=== PATIENT | female | born 1935 | race African-American/Black ===

== ENCOUNTER 2018-08-31 18:02 | Observation (INO) ==
[2018-08-31 18:33] LABS: BASOPHILS # (AUTO) 0.1 X10^3/uL (0.0-0.1); BASOPHILS % (AUTO) 1.2 % (0.2-1.0); EOSINOPHILS # (AUTO) 0.2 x10^3/uL (0.0-0.2); HEMATOCRIT 37.7 % (36.0-47.0); HEMOGLOBIN 12.3 g/dL (12.0-16.0); LYMPHOCYTES # (AUTO) 1.3 X10^3/uL (1.3-2.9); MEAN CORPUSCULAR HEMOGLOBIN 27.7 pg (27.0-34.0); MEAN CORPUSCULAR HGB CONC 32.7 g/dL (33.0-35.0); MEAN CORPUSCULAR VOLUME 84.7 fL (80.0-100.0); MONOCYTES # (AUTO) 0.5 x10^3/uL (0.3-0.8); MONOCYTES % (AUTO) 11.4 % (0.0-13.0); NEUTROPHILS # (AUTO) 2.3 x10^3/uL (2.2-4.8); NEUTROPHILS % (AUTO) 53.4 % (42.0-75.0); PLATELET COUNT 118 X10^3/uL (150.0-450.0); RED BLOOD COUNT 4.45 X10^6/uL (3.5-5.4); RED CELL DISTRIBUTION WIDTH 14.8 % (11.6-16.5); WHITE BLOOD COUNT 4.4 X10^3/uL (3.6-10.0)
[2018-08-31] MEDS ORDERED: ELIQUIS PO ONE (18:38)
[2018-08-31 18:44] LABS: ALANINE AMINOTRANSFERASE 27 Units/L (12-78); ALBUMIN 3.8 g/dL (3.4-5.0); ALKALINE PHOSPHATASE 86 Units/L (46-116); ASPARTATE AMINO TRANSFERASE 33 Units/L (15-37); BLOOD UREA NITROGEN 18 mg/dL (7-18); CALCIUM 9.6 mg/dL (8.5-10.1); CARBON DIOXIDE 28.5 mmol/L (21-32); CHLORIDE 102 mmol/L (98-107); CREATININE 1.06 mg/dL (0.55-1.02); SODIUM 138 mmol/L (136-145); TOTAL PROTEIN 8.3 g/dL (6.4-8.2); eGFR NON BLACK RACES 53 (>60)
--- NOTE | 2018-08-31 18:48 | DR.GENAD ---
HPI Time Seen Time Seen by Provider: 08/31/18 18:30 PCP Primary Care Physician: larissa Complaint/Symptoms Chief Complaint Doctors Comments: Pt. was diverted to be evaluated in the ED based on a positive Doppler study on the left lower extremity. The pt. states she has had left calf pain for 1 week now. Swelling started 5 days ago. She went to [facility] this evening and was sent for the venous study referenced above. She denies chest pain or dyspnea. Chief Complaint:: pt states" I had a LEV done today it shows a blood clot my Dr told me to come to the er" lt leg pain and swelling since Source History Provided: Patient Mode of Arrival Mode of Arrival: Ambulatory Timing Onset of Chief Complaint: 08/26/18 PMH PMH Past Medical History: Yes Past Medical History: Hypertension Past Surgical History: Yes Surgical History: Appendectomy, Cholecystectomy and Hysterectomy Past Surgical History Comment: back surgery Family History History of Family Medical Conditions: Yes Family Medical History: Diabetes Mellitus, Cancer and Hypertension Social History Does any household member use tobacco: No Alcohol Use: None Do you use any recreational Drugs:: No Lives With: Family Lives Where: Home infectious screening In the last 2 months have you had wt loss of >10#?: NO Have you had fever, night sweats or hemotysis?: No Have you traveled outside the country in the last 6 months?: No Isolation: Standard ROS Review of Systems Constitutional: No Symptoms Reported Eyes: No Symptoms Reported ENTM: No Symptoms Reported Respiratoy: No Symptoms Reported Cardiovascular: No Symptoms Reported Gastrointestinal/Abdominal: No Symptoms Reported Genitourinary: No Symptoms Reported Neurological: No Symptoms Reported Musculoskeletal: Leg (pain and swelling, left) Integumentary: No Symptoms Reported Hematologic/Lymphatic: No Symptoms Reported Endocrine: No Symptoms Reported Psychiatric: No Symptoms Reported PE Vital Signs Vitals: Temperature 97.6 F Pulse Rate [Right Brachial] 78 Pulse Rate 68 Respiratory Rate 18 Blood Pressure [Right Arm] 169/81 Blood Pressure 191/77 O2 Sat by Pulse Oximetry 98 General Limitations: No Limitations General Appearance: Alert and In No Apparent Distress Head Head Exam: Normal Inspection, Atraumatic and Normocephalic Eyes Eye exam: Normal Appearance, PERRL and EOMI ENT ENT Exam: Normal Exam, Normal Oropharynx and Mucous Membranes Moist Neck Neck Exam: Normal Inspection, Full ROM and Trachea Midline Chest Chest Inspection: Normal Inspection Respiratory Respiratory Exam: Normal Lung Sounds Bilat Cardiovascular Cardiovascular Exam: Regular Rate, Normal Rhythm, +S1 and +S2 Abdominal Exam Abdominal Exam: Normal Inspection, Normal Bowel Sounds and Soft Extremities Extremities Exam: Edema (Lt. leg), Calf Tenderness (lt, leg) and Other (CAMILLE's test is positive on the left) Neurologic Neurological Exam: Alert and Oriented X3 Psychiatric Psychiatric Exam: Normal Affect and Normal Mood Skin Skin Exam: Warm, Dry and Intact COURSE Education/Counseling Education/Counseling: Patient, Family, Education and Counseling Educated On: Treatment, Diagnosis, Prognosis and Needs for Follow Up ROR Labs Reviewed Laboratory Results Reviewed?: Yes Result Diagrams: 08/31/18 18:08/31/18 18 Laboratory: WBC 4.4 X10^3/uL (3.6-10.0) 08/31/18 18: RBC 4.45 X10^6/uL (3.5-5.4) 08/31/18 18: Hgb 12.3 g/dL (12.0-16.0) 08/31/18 18: Hct 37.7 % (36.0-47.0) 08/31/18 18: MCV 84.7 fL (80.0-100.0) 08/31/18 18: MCH 27.7 pg (27.0-34.0) 08/31/18 18: MCHC 32.7 g/dL (33.0-35.0) L 08/31/18 18: RDW 14.8 % (11.6-16.5) 08/31/18: Plt Count 118 X10^3/uL (150.0-450.0) L 08/31/18 18: MPV 8.0 fL (7.4-11.0) 08/31/18 18: Neut % (Auto) 53.4 % (42.0-75.0) 08/31/18 18: Lymph % (Auto) 30.0 % (21.0-51.0) 08/31/18 18: [place] % (Auto) 11.4 % (0.0-13.0) 08/31/18 18: Eos % (Auto) 4.0 % (0.9-2.9) H 08/31/18 18:27 Baso % (Auto) 1.2 % (0.2-1.0) H 08/31/18 18:27 Neut # (Auto) 2.3 x10^3/uL (2.2-4.8) 08/31/18 18:27 Lymph # (Auto) 1.3 X10^3/uL (1.3-2.9) 08/31/18 18:27 [place] # (Auto) 0.5 x10^3/uL (0.3-0.8) 08/31/18 18:27 Eos # (Auto) 0.2 x10^3/uL (0.0-0.2) 08/31/18 18:27 Baso # (Auto) 0.1 X10^3/uL (0.0-0.1) 08/31/18 18: Absolute Nucleated RBC 0.0 /100WBC 08/31/18 18: INR Target Range - 08/31/18 18: INR 0.92 (0.8-1.3) 08/31/18 18:27 APTT 33.7 SECONDS (22.9-36.5) 08/31/18 18:27 PTT Comment - 08/31/18 18:27 Sodium 138 mmol/L (136-145) 08/31/18 18:27 Corrected Sodium TNP 08/31/18 18:27 Potassium 3.9 mmol/L (3.5-5.1) 08/31/18 18: Chloride 102 mmol/L (98-107) 08/31/18 18: Carbon Dioxide 28.5 mmol/L (21-32) 08/31/18 18:27 BUN 18 mg/dL (7-18) 08/31/18 18:27 Creatinine 1.06 mg/dL (0.55-1.02) H 08/31/18 18:27 Est GFR (MDRD) Af Amer > 60 (>60) 08/31/18 18:27 Est GFR (MDRD) Non-Af 53 (>60) L 08/31/18 18:27 Glucose 92 mg/dL (65-99) 08/31/18 18: Calcium 9.6 mg/dL (8.5-10.1) 08/31/18 18:27 Corrected Calcium TNP 08/31/18 18:27 Total Bilirubin 0.40 mg/dL (0.2-1.0) 08/31/18 18:27 AST 33 Units/L (15-37) 08/31/18 18:27 ALT 27 Units/L (12-78) 08/31/18 18:27 Alkaline Phosphatase 86 Units/L (46-116) 08/31/18 18:27 Total Protein 8.3 g/dL (6.4-8.2) H 08/31/18 18:27 Albumin 3.8 g/dL (3.4-5.0) 08/31/18 18:27 Globulin 4.5 g/dL (2.5-4.5) 08/31/18 18:27 Albumin/Globulin Ratio 0.8 Ratio (1.1-2.1) L 08/31/18 18:27 XRAY XRAY Interpreted by: Self XRAY Findings: CXR: NAD Diagnosis Discharge Problem: Deep vein thrombosis (DVT) of popliteal vein of left lower extremity Qualifiers: Chronicity: acute Qualified Code(s): I82.432 - Acute embolism and thrombosis of left popliteal vein
--- NOTE | 2018-08-31 18:54 | RAD ---
HISTORY: Blood clot Study: Single view of the chest. Comparison: None. Findings: The cardiomediastinal silhouette is normal. No focal consolidations, pleural effusions or pneumothorax. Osseous structures demonstrate no acute abnormality. IMPRESSION: 1. No acute cardiopulmonary process. Reported By:
[2018-08-31] MEDS ORDERED: APRESOLINE INJ 20 MG VIAL IVP ONE (23:10)
[2018-09-01 01:03] LABS: BILIRUBIN,URINE NEGATIVE (NEGATIVE); BLOOD/HEMOGLOBIN,URINE NEGATIVE (NEGATIVE); GLUCOSE, URINE NEGATIVE (NEGATIVE); KETONES,URINE NEGATIVE (NEGATIVE); LEUKOCYTE ESTERASE ,URINE NEGATIVE (NEGATIVE); NITRITES,URINE NEGATIVE (NEGATIVE); PROTEIN,URINE NEGATIVE (NEGATIVE); UROBILINOGEN,URINE NORMAL (NORMAL)
[2018-09-01 01:05] LABS: APPEARANCE,URINE CLEAR (CLEAR); COLOR,URINE YELLOW (YELLOW)
[2018-09-01 01:07] VITALS: BMI 31.1
[2018-09-01 06:22] LABS: ALANINE AMINOTRANSFERASE 26 Units/L (12-78); ALBUMIN 3.3 g/dL (3.4-5.0); ALKALINE PHOSPHATASE 76 Units/L (46-116); ASPARTATE AMINO TRANSFERASE 32 Units/L (15-37); BLOOD UREA NITROGEN 16 mg/dL (7-18); CALCIUM 9.4 mg/dL (8.5-10.1); CARBON DIOXIDE 29.7 mmol/L (21-32); CHLORIDE 103 mmol/L (98-107); CREATININE 1.08 mg/dL (0.55-1.02); SODIUM 141 mmol/L (136-145); TOTAL PROTEIN 7.2 g/dL (6.4-8.2); eGFR NON BLACK RACES 52 (>60)
[2018-09-01 06:37] LABS: BASOPHILS % (AUTO) 0.8 % (0.2-1.0); EOSINOPHILS # (AUTO) 0.2 x10^3/uL (0.0-0.2); EOSINOPHILS % (AUTO) 4.4 % (0.9-2.9); HEMOGLOBIN 11.7 g/dL (12.0-16.0); LYMPHOCYTES # (AUTO) 1.2 X10^3/uL (1.3-2.9); LYMPHOCYTES % (AUTO) 25.7 % (21.0-51.0); MEAN CORPUSCULAR HEMOGLOBIN 28.1 pg (27.0-34.0); MEAN CORPUSCULAR HGB CONC 33.4 g/dL (33.0-35.0); MEAN CORPUSCULAR VOLUME 84.1 fL (80.0-100.0); MEAN PLATELET VOLUME 8.2 fL (7.4-11.0); MONOCYTES # (AUTO) 0.7 x10^3/uL (0.3-0.8); MONOCYTES % (AUTO) 16.1 % (0.0-13.0); NEUTROPHILS # (AUTO) 2.4 x10^3/uL (2.2-4.8); PLATELET COUNT 118 X10^3/uL (150.0-450.0); RED BLOOD COUNT 4.17 X10^6/uL (3.5-5.4); RED CELL DISTRIBUTION WIDTH 14.5 % (11.6-16.5); WHITE BLOOD COUNT 4.5 X10^3/uL (3.6-10.0)
[2018-09-01] MEDS: PROTONIX TAB 40 MG PO SCH (08:40)
[2018-09-01] MEDS: APRESOLINE TAB 25 MG PO SCH ×2 (08:41→20:24)
[2018-09-01] MEDS: ELIQUIS PO SCH ×2 (08:41→20:23)
[2018-09-01] MEDS ORDERED: APRESOLINE TAB 25 MG PO SCH (09:00)
[2018-09-01 11:26] LABS: ERYTHROCYTE SEDIMENTATION RATE 24 MM/HOUR (0-20)
[2018-09-01] MEDS ORDERED: TYLENOL 325 MG TAB PO ONE (17:26)
[2018-09-01] MEDS: TYLENOL 325 MG TAB PO PRN (17:30)
[2018-09-01] MEDS ORDERED: PREDNISONE TAB 20 MG PO NR (18:00)
[2018-09-02] MEDS: TYLENOL 325 MG TAB PO PRN (00:08)
[2018-09-02 05:18] LABS: BASOPHILS % (AUTO) 0.5 % (0.2-1.0); HEMATOCRIT 35.6 % (36.0-47.0); HEMOGLOBIN 11.6 g/dL (12.0-16.0); LYMPHOCYTES # (AUTO) 0.7 X10^3/uL (1.3-2.9); LYMPHOCYTES % (AUTO) 16.5 % (21.0-51.0); MEAN CORPUSCULAR HEMOGLOBIN 27.5 pg (27.0-34.0); MEAN CORPUSCULAR HGB CONC 32.5 g/dL (33.0-35.0); MEAN CORPUSCULAR VOLUME 84.5 fL (80.0-100.0); MEAN PLATELET VOLUME 8.1 fL (7.4-11.0); MONOCYTES # (AUTO) 0.1 x10^3/uL (0.3-0.8); MONOCYTES % (AUTO) 1.9 % (0.0-13.0); NEUTROPHILS # (AUTO) 3.3 x10^3/uL (2.2-4.8); NEUTROPHILS % (AUTO) 81.1 % (42.0-75.0); PLATELET COUNT 128 X10^3/uL (150.0-450.0); RED BLOOD COUNT 4.21 X10^6/uL (3.5-5.4); RED CELL DISTRIBUTION WIDTH 14.7 % (11.6-16.5); WHITE BLOOD COUNT 4.1 X10^3/uL (3.6-10.0)
[2018-09-02 05:35] LABS: ALBUMIN 3.1 g/dL (3.4-5.0); CALCIUM 9.1 mg/dL (8.5-10.1); CARBON DIOXIDE 26.5 mmol/L (21-32); COR CA(FOR HYPOALB) 9.8 mg/dL (8.5-10.1); CREATININE 1.29 mg/dL (0.55-1.02); TOTAL PROTEIN 7.2 g/dL (6.4-8.2)
[2018-09-02] MEDS ORDERED: BENADRYL CAP 50 MG PO NR (06:00)
[2018-09-02] MEDS ORDERED: PREDNISONE TAB 20 MG PO NR ×2 (06:00)
--- NOTE | 2018-09-02 07:33 | CT ---
HISTORY: Left lower extremity DVT Study: CTA chest with contrast for pulmonary embolus Comparison: None Technique: Axial post-contrast images with coronal, sagittal, and three-dimensional maximum intensity projection images obtained and evaluated. Dose reduction procedures were used with mA/kv adjusted for body size. Findings: There is no evidence for acute pulmonary thromboembolic disease. Examination of the mediastinum demonstrated enlargement of the left thyroid lobe which contributes to minimal rightward deviation of the upper trachea. No definite nodules or masses are identified. No mediastinal masses, enlarged mediastinal or enlarged hilar adenopathy is identified. Calcific atherosclerotic changes present in a nondilated thoracic aorta. No pleural effusions are identified. No chest wall or axillary abnormality is identified. Those portions of the upper abdominal organs visualized were within normal limits with the exception of multiple nonobstructing partially visualized right renal calculi. Examination of the lung stauffer demonstrated no significant nodules, masses, alveolar infiltrates, areas of consolidation, peribronchial thickening or bronchiectasis. Benign calcified granulomas are present on the right. IMPRESSION: No evidence for acute pulmonary thromboembolic disease Lungs clear Enlarged left thyroid lobe Old granulomatous disease Reported By:
[2018-09-02] MEDS: PROTONIX TAB 40 MG PO SCH (08:05)
[2018-09-02] MEDS: ELIQUIS PO SCH (08:05)
[2018-09-02] MEDS: APRESOLINE TAB 25 MG PO SCH (08:05)
--- NOTE | 2018-09-02 08:39 | DR.UPDATE ---
H&P Update History and Physical Update: PRESENTED TO THE OFFICE WITH COMPLAINTS OF BILATERAL LEG PAIN AND SWELLING. SHE WAS SENT TO THE HOSPITAL FOR A LOWER EXTREMITY VENOUS DOPPLER. DOPPLER REVEALED THROMBOSIS OF THE DISTAL POPLITEAL AND POSTERIOR TIBIALIS VEIN. SHE WAS THEN SENT TO THE ER FOR FURTHER EVALUATION AND TREATMENT. SHE WAS THEN ADMITTED AND STARTED ON ELIQUIS 10MG PO BID. WE PLANNED TO OBTAIN A CHEST CTA WITH CONTRAST. PATIENT REPORTS BEING ALLERGIC TO IVP DYE AND IODINE. WE WILL PREP PATIENT PER THE PROTOCOL AND THEN OBTAIN THE CTA. OTHERWISE, WE WILL FOLLOW UP WITH AM LABS AND CONTINUE TO MONITOR. Changes noted: NO
[2018-09-02 09:06] VITALS: BP 197/90
[2018-09-04 10:52] LABS: ANTI-NUCLEAR ANTIBODY TEST Detected (None Detected)
[2018-09-04 10:52] LABS: PROTEIN C ACTIVITY 156 % (83-168)
[2018-09-05 10:42] LABS: PROTEIN C ACTIVITY 135 % (83-168)
[2018-09-06 06:49] LABS: ANA PATTERN SPECKLED
[2018-09-07 06:34] LABS: ANTITHROMBIN III ACTIVITY 90 % (76-128); PROTHROMBIN G20210A Negative
[2018-09-07 06:40] LABS: DRVVT CONFIRMATION NEGATIVE
== END 2018-09-02 11:30 | disposition home or self-care (01) ==
LOC: ER 18:06 → MED/SURG 18:06
PROVIDERS: ADMIT Internal Medicine; ATTEND Internal Medicine
DX: Z79.899 Other long term (current) drug therapy; I10 Essential (primary) hypertension; E04.0 Nontoxic diffuse goiter; R70.0 Elevated erythrocyte sedimentation rate; Z79.01 Long term (current) use of anticoagulants; R60.0 Localized edema; I82.432 Acute embolism and thrombosis of left popliteal vein; M79.7 Fibromyalgia
CPT/HCPCS: 36415; 71010; 71045; 71275; 80053; 81003; 81240; 81241; 82615; 83090; 85025; 85300; 85303; 85305; 85306; 85307; 85597; 85610; 85613; 85635; 85652; 85670; 85730; 85732; 86038; 86140; 86308; 87086; 93306; 93971; 96365; 96374; 99283; 99284; A4222; G0378; J0360; J3490; J7512